=== PATIENT | female | born 1930 | race Caucasian/White ===

== ENCOUNTER 2017-07-16 18:00 | Emergency (ER) | payer OTHER ==
[~2017-07-16] VITALS: Ht 160 cm; Wt 74.8 kg
[2017-07-16] MEDS ORDERED: SIMVASTATIN (18:10)
[2017-07-16] MEDS ORDERED: ASPIRIN (18:10)
[2017-07-16] MEDS ORDERED: ATENOLOL (18:10)
[2017-07-16] MEDS ORDERED: HYDRALAZINE (18:10)
[2017-07-16] MEDS ORDERED: HYDROCODONE/APAP 5-325MG TABLET PO ONE (18:15)
[2017-07-16] MEDS ORDERED: HYDROCODONE/APAP 5-325MG TABLET ONE (18:17)
--- NOTE | 2017-07-16 19:04 | NUR ---
Hands off report given to overnight stocker.
[2017-07-16] MEDS ORDERED: NEOMY/BACITRA/POLYMYXIN B OINT UD PACKET TP ONE ×2 (19:15)
--- NOTE | 2017-07-16 19:30 | NUR ---
Patient discharged to home in stable conditon. Written and verbal after care instructions given. Patient verbalizes understanding of instructions. Patient ambulated out of ER with steady gait, no acute signs of distress, VSS, all belongings taken.
[2017-07-16 19:41] VITALS: BP 167/74
== END 2017-07-16 19:30 | disposition home or self-care (01) ==
LOC: ER 18:00
DX: S62.615A Displaced fracture of proximal phalanx of left ring finger, initial encounter for closed fracture (principal); S62.617A Displaced fracture of proximal phalanx of left little finger, initial encounter for closed fracture; I10 Essential (primary) hypertension; E78.00 Pure hypercholesterolemia, unspecified; Z88.5 Allergy status to narcotic agent; Z79.82 Long term (current) use of aspirin; Z79.899 Other long term (current) drug therapy; W18.30XA Fall on same level, unspecified, initial encounter; Y93.89 Activity, other specified; Y92.89 Other specified places as the place of occurrence of the external cause; Y99.8 Other external cause status
CPT/HCPCS: 73130; A4663